=== PATIENT | male | born 1960 | race Caucasian/White ===

== ENCOUNTER → 2016-05-08 | Outpatient (CLI) | payer BC ==
[~2016-05-08] MED LIST: CETI10TA84 PO; PRT/20 PO
[2016-05-08 15:07] LABS: LYME DISEASE AB IGG NEG (NEG); LYME DISEASE AB IGM NEG (NEG)
== END | disposition home or self-care (01) ==
LOC: C.LABSPEC 12:52
PROVIDERS: ATTEND Family Medicine
DX: M79.1 Myalgia (principal)

== ENCOUNTER → 2016-09-15 | Outpatient (CLI) | payer BC ==
[2016-09-15 14:19] LABS: BASO % 0.8 %; BASO ABS # 0.04 K/uL (0-0.2); COMPLETE YES; EOS % 3.1 %; HEMATOCRIT 39.2 % (42-52); IG% 0.2 %; LYMPH % 30.6 %; LYMPH ABS # 1.47 K/uL (1.2-3.4); MEAN CELL VOLUME 87.9 fL (80-100); MEAN CORPUSCULAR HGB CONC 34.2 g/dl (32-36); MEAN PLATELET VOLUME 9.6 fL (7.4-10.4); NEUT % 56.3 %; PLATELET COUNT 194 K/uL (130-400); RED BLOOD COUNT 4.46 M/uL (4.7-6.1)
[2016-09-15 15:01] LABS: CALCIUM 9.3 mg/dl (8.5-10.1)
[2016-09-15 15:02] LABS: ALT/SGPT 35 U/L (12-78); BLOOD UREA NITROGEN 14 mg/dl (7-18); BUN/CREATININE RATIO 13.8 (10-20); CARBON DIOXIDE 24 mmol/L (21-32); CHLORIDE 112 mmol/L (98-107); CHOLESTEROL 155 mg/dl (0-200); GLUCOSE 97 mg/dl (70-99); POTASSIUM 4.5 mmol/L (3.5-5.1); SODIUM 142 mmol/L (136-145); TRIGLYCERIDES 159 mg/dl (0-150); VERY LOW DENSITY LIPOPROT CALC 32 mg/dl
[2016-09-15 15:10] LABS: ALB/GLOB RATIO 1.1 (0.9-2); ALKALINE PHOSPHATASE 66 U/L (45-117); AST/SGOT 17 U/L (15-37); CHOLESTEROL/HDL RATIO 5.2; HDL CHOLESTEROL 30 mg/dl; LDL CHOLESTEROL CALCULATED 93 mg/dl
== END | disposition home or self-care (01) ==
LOC: C.LABSPEC 13:24
PROVIDERS: ATTEND Family Medicine
DX: K21.9 Gastro-esophageal reflux disease without esophagitis (principal); E29.1 Testicular hypofunction; K64.9 Unspecified hemorrhoids; Z12.5 Encounter for screening for malignant neoplasm of prostate